=== PATIENT | female | born 1955 | race Two or more races ===

== ENCOUNTER 2024-01-12 05:11 | Inpatient (IN) | payer MEDICARE, MEDICAID ==
[2024-01-12] VITALS (20 sets, daily range): BP systolic 102–163; BP diastolic 51–90; PULSE 82–155; RESP 19–26; TEMP 97.7; O2SAT 68–100
[~2024-01-12] VITALS: Ht 162.6 cm; Wt 82.7 kg
[2024-01-12] MEDS: ADENOSINE 6 MG/2 ML INJ IV ONE ×2 (06:00→06:57)
[2024-01-12] MEDS: DexAMETHasone SOD PHOS 10MG/1ML VIAL INJ IV ONE (06:00)
[2024-01-12] MEDS: LEVALBUTEROL HCL 1.25 MG/3 ML NEB ONE (06:00)
[2024-01-12 06:20] LABS: Basophils # (auto) 0.1 10 ^3/uL (0-0.2); Eosinophils # (auto) 0 10 ^3/uL (0-0.8); Eosinophils % (auto) 0.1 % (0.0-7.0); Hemoglobin 13.8 g/dL (12.2-16.2); Mean Corpuscular Hemoglobin 34.8 pg (28.0-32.0); Monocytes # (auto) 0.6 10 ^3/uL (0-1.3); Red Blood Cells 3.96 10^6/uL (4.0-5.20)
[2024-01-12 06:22] LABS: Basophils % (auto) 0.4 % (0.0-2.0); Hematocrit 39.8 % (36.0-46.0); Lymphocytes # (auto) 1.8 10 ^3/uL (0.4-5.4); Lymphocytes % (auto) 8.8 % (10.0-50.0); Mean Corpuscular Hgb Conc. 34.6 g/dL (32.0-36.0); Mean Corpuscular Volume 100.5 fL (80.0-100.0); Monocytes % (auto) 3.2 % (0.0-12.0); Neutrophils # (auto) 17.5 10 ^3/uL (1.6-8.6); Neutrophils % (auto) 87.5 % (37.0-80.0); Nucleated Red Blood Cells % 0.3 %
[2024-01-12 06:35] LABS: Base Excess 9.3 mmol/L (-2.0-2.0)
[2024-01-12 06:35] LABS: Red Cell Distribution Width 21.4 % (11.8-14.3)
[2024-01-12] MEDS: LEVALBUTEROL HCL 1.25 MG/3 ML NEB NEB SCH ×2 (06:36→18:48)
[2024-01-12 06:39] LABS: INR 1.19 (0.9-1.15); Partial Thromboplastin Time 21.8 SEC (24.5-34.5); Prothrombin Time 12.4 sec (9.3-11.8)
[2024-01-12] MEDS: SODIUM CHLORIDE 0.9% 1,000 ML IV ONE (06:49)
[2024-01-12] MEDS: NOREPINEPHRINE 8 MG/250ML KIT 250 ML IV SCH ×2 (07:00→21:25)
[2024-01-12] MEDS: NOREPINEPHRINE 8 MG/250ML KIT 250 ML IV ONE ×2 (07:02→21:27)
[2024-01-12] MEDS: IOHEXOL 350 MG/ML 100ML IJ ONE (07:08)
[2024-01-12] MEDS: AZITHROMYCIN 500MG/ 250ML 250 ML IV ONE (07:30)
[2024-01-12 07:49] LABS: Rapid Influenza A Negative (Negative); Rapid Influenza B Negative (Negative)
[2024-01-12 07:50] LABS: COVID19 ANTIGEN SOFIA FIA NEGATIVE (NEGATIVE)
[2024-01-12 08:15] LABS: Lactic Acid w/Reflex 6.7 mmol/L (0.4-2.0)
[2024-01-12] MEDS: ONDANSETRON HCL 4 MG/2 ML VIAL IV ONE (08:21)
[2024-01-12 08:27] LABS: Alanine Aminotransferase 126 U/L (7-40); Albumin 3.3 g/dL (3.2-4.8); Alkaline Phosphatase 81 U/L (46-116); Anion Gap 11 (5-15); Aspartate Aminotransferase 220 U/L (13-40); BUN/Creatinine Ratio 10.4 (10.0-20.0); Blood Urea Nitrogen 15 mg/dL (9-23); Calcium 7.1 mg/dL (8.5-10.1); Carbon Dioxide 33 mmol/L (20-30); Chloride 98 mmol/L (98-107); Glucose 227 mg/dL (74-106); Sodium 142 mmol/L (136-145)
[2024-01-12 08:28] LABS: Total Protein 5.7 g/dL (5.7-8.2)
[2024-01-12] MEDS: VANCOMYCIN 1GM/200ML 200 ML IV ONE (08:29)
[2024-01-12 08:36] LABS: Potassium 1.1 mmol/L (3.5-5.1)
[2024-01-12] MEDS: POTASSIUM CHL 20 Meq TABLET PO ONE (08:44)
[2024-01-12 08:50] LABS: Magnesium 1.3 mg/dL (1.6-2.6)
[2024-01-12] MEDS: POTASSIUM CHL 20MEQ/100ML 100 ML IV SCH ×2 (08:58→15:15)
[2024-01-12] MEDS ORDERED: MORPHINE SULFATE INJ 2 MG/ml SYRG IV PRN (10:00)
[2024-01-12] MEDS ORDERED: NITROGLYCERIN 0.4 MG SL TAB SL PRN (10:00)
[2024-01-12] MEDS ORDERED: DEXTROSE (50%) 50ML SYRG IV PRN (10:00)
[2024-01-12] MEDS: LACTATED RINGER'S 1,000 ML IV ONE (10:37)
[2024-01-12] MEDS: PANTOPRAZOLE 40 MG/10 ML VIAL INJ IV SCH (10:37)
[2024-01-12] MEDS: MAGNESIUM SULFATE 1GM/100ML 100 ML IV SCH (11:19)
[2024-01-12] MEDS: InsuLIN REG 1unit/0.01ml Soln (100units/ml) SC SCH (11:50)
[2024-01-12] MEDS: ACCU-CHEK COMFORT CURVE STRIP VI SCH (11:50)
[2024-01-12] MEDS: ENOXAPARIN SOD 40 MG/0.4 ML SYRINGE SC SCH (11:57)
[2024-01-12] MEDS: ASPirin 81 mg TAB PO ONE (11:57)
[2024-01-12] MEDS: SOD CHL 0.9%/ KCL 40MEQ 1,000 ML IV SCH (12:36)
[2024-01-12] MEDS: dilTIAZem HCL 60 MG TAB PO SCH (12:40)
[2024-01-12] MEDS: dilTIAZem 25 MG/5 ML VIAL IV ONE (12:40)
[2024-01-12 14:33] LABS: Anion Gap 9 (5-15); Carbon Dioxide 35 mmol/L (20-30); Chloride 99 mmol/L (98-107); Sodium 143 mmol/L (136-145)
[2024-01-12 14:34] LABS: Calcium 6.4 mg/dL (8.7-10.4)
[2024-01-12] MEDS: metroNIDAZOLE 500MG/100ML 100 ML IV SCH (14:35)
[2024-01-12 14:39] LABS: BUN/Creatinine Ratio 12.7 (10.0-20.0); Blood Urea Nitrogen 17 mg/dL (9-23); Glucose 214 mg/dL (74-106); Magnesium 2.4 mg/dL (1.6-2.6)
[2024-01-12 15:10] LABS: Potassium 1.6 mmol/L (3.5-5.1)
[2024-01-12] MEDS: LIDOCAINE 1% (LOCAL ANESTH.) PF 5ml SDV ID ONE (15:15)
[2024-01-12] MEDS: LORazepam 2MG/ML-1ML VIAL IV ONE (15:30)
[2024-01-12 16:43] LABS: Base Excess 5.8 mmol/L (-2.0-2.0)
[2024-01-12 17:47] LABS: Urine Bacteria MANY /hpf (None Seen); Urine Blood 3+ /uL (Negative); Urine Clarity HAZY (Clear); Urine Color Yellow (Yellow); Urine Protein, UAD 1+ (Negative); Urine Urobilinogen Normal (Negative); Urine WBC 3 /hpf (0 - 5)
[2024-01-12] MEDS: IPRATROPIUM BROM 0.5 MG/2.5ML INH SOL NEB SCH (18:48)
[2024-01-12] MEDS: MIDAZOLAM DRIP 50 mg/50mL 50 ML IV SCH (20:20)
[2024-01-12] MEDS: MIDAZOLAM DRIP 50 mg/50mL 50 ML IV ONE (20:28)
[2024-01-12 21:26] LABS: Basophils # (auto) 0 10 ^3/uL (0-0.2); Basophils % (auto) 0.1 % (0.0-2.0); Eosinophils # (auto) 0 10 ^3/uL (0-0.8); Hemoglobin 12.3 g/dL (12.2-16.2); Monocytes # (auto) 0.7 10 ^3/uL (0-1.3)
[2024-01-12 21:28] LABS: Eosinophils % (auto) 0.1 % (0.0-7.0); Hematocrit 36.8 % (36.0-46.0); Lymphocytes # (auto) 1.4 10 ^3/uL (0.4-5.4); Lymphocytes % (auto) 6.1 % (10.0-50.0); Mean Corpuscular Hemoglobin 34.5 pg (28.0-32.0); Mean Corpuscular Hgb Conc. 33.4 g/dL (32.0-36.0); Mean Corpuscular Volume 103.4 fL (80.0-100.0); Monocytes % (auto) 3.3 % (0.0-12.0); Neutrophils # (auto) 20.2 10 ^3/uL (1.6-8.6); Neutrophils % (auto) 90.4 % (37.0-80.0); Nucleated Red Blood Cells % 0.2 %; Red Blood Cells 3.56 10^6/uL (4.0-5.20); White Blood Cell 22.3 10^3/uL (4.4-10.8)
[2024-01-12 21:28] LABS: Base Excess 4.9 mmol/L (-2.0-2.0)
[2024-01-12 21:29] LABS: Red Cell Distribution Width 22.2 % (11.8-14.3)
[2024-01-12 21:40] LABS: Alanine Aminotransferase 160 U/L (7-40); Alkaline Phosphatase 69 U/L (46-116); Anion Gap 10 (5-15); Aspartate Aminotransferase 343 U/L (13-40); BUN/Creatinine Ratio 7.1 (10.0-20.0); Blood Urea Nitrogen 11 mg/dL (9-23); Calcium 6.4 mg/dL (8.5-10.1); Carbon Dioxide 32 mmol/L (20-30); Chloride 104 mmol/L (98-107); Glucose 204 mg/dL (74-106); Sodium 146 mmol/L (136-145)
[2024-01-12 21:41] LABS: Albumin 2.9 g/dL (3.2-4.8); Bilirubin, Total 0.9 mg/dL (0.2-1.0); Total Protein 5.1 g/dL (5.7-8.2)
[2024-01-12 21:50] LABS: Potassium 1.2 mmol/L (3.5-5.1)
[2024-01-12] MEDS: fentaNYL Drip 2500mCg/250mlNS 250 ML IV SCH (23:15)
[2024-01-12] MEDS: POTASSIUM EFFERVESENT TAB 25 MEQ PO ONE (23:31)
[2024-01-13] VITALS (12 sets, daily range): BP systolic 94–140; BP diastolic 51–77; PULSE 86–96; RESP 22–24; O2SAT 89–95
[2024-01-13] MEDS: SODIUM CHLOR 0.9% PF (SALINE LOCK) 10ML VIAL/SYR IV SCH (00:43)
[2024-01-13] MEDS: ENOXAPARIN SOD 100 MG/1 ML SYRINGE SC SCH ×2 (00:56→10:00)
[2024-01-13 07:08] LABS: Alanine Aminotransferase 127 U/L (7-40); Alkaline Phosphatase 62 U/L (46-116); Chloride 108 mmol/L (98-107)
[2024-01-13 07:09] LABS: Albumin 2.7 g/dL (3.2-4.8); Anion Gap 8 (5-15); Aspartate Aminotransferase 331 U/L (13-40); BUN/Creatinine Ratio 11.8 (10.0-20.0); Blood Urea Nitrogen 15 mg/dL (9-23); Carbon Dioxide 32 mmol/L (20-30); Glucose 151 mg/dL (74-106); Magnesium 1.9 mg/dL (1.6-2.6); Sodium 148 mmol/L (136-145); Total Protein 4.9 g/dL (5.7-8.2)
[2024-01-13 07:23] LABS: Calcium 5.7 mg/dL (8.7-10.4)
[2024-01-13] MEDS ORDERED: POTASSIUM CHL 20MEQ/100ML 100 ML IV SCH (07:30)
[2024-01-13 07:35] LABS: Basophils # (auto) 0 10 ^3/uL (0-0.2); Basophils % (auto) 0.5 % (0.0-2.0); Eosinophils # (auto) 0 10 ^3/uL (0-0.8); Eosinophils % (auto) 0.1 % (0.0-7.0); Hematocrit 35.5 % (36.0-46.0); Lymphocytes # (auto) 2.8 10 ^3/uL (0.4-5.4); Lymphocytes % (auto) 30.2 % (10.0-50.0); Mean Corpuscular Hemoglobin 34.1 pg (28.0-32.0); Mean Corpuscular Hgb Conc. 33.8 g/dL (32.0-36.0); Mean Corpuscular Volume 100.8 fL (80.0-100.0); Monocytes # (auto) 0.2 10 ^3/uL (0-1.3); Monocytes % (auto) 2.5 % (0.0-12.0); Neutrophils # (auto) 6.1 10 ^3/uL (1.6-8.6); Neutrophils % (auto) 66.7 % (37.0-80.0); Nucleated Red Blood Cells % 0.7 %; Red Blood Cells 3.52 10^6/uL (4.0-5.20); White Blood Cell 9.2 10^3/uL (4.4-10.8)
[2024-01-13 07:50] LABS: Base Excess 6.7 mmol/L (-2.0-2.0)
[2024-01-13 07:56] LABS: Red Cell Distribution Width 21.5 % (11.8-14.3)
[2024-01-13] MEDS: POTASSIUM CHL 20MEQ/100ML 100 ML IV ONE (08:00)
[2024-01-13] MEDS: CALCIUM GLUC 1,000mg/50ml-NS 50 ML IV SCH ×2 (08:00→10:15)
[2024-01-13 08:03] LABS: Macrocytosis Slight; Platelet Estimate Markedly Decreased
[2024-01-13 08:04] LABS: Anisocytosis Slight
[2024-01-13] MEDS: cefTRIAXone 1GM/50ML D5W 50 ML IV SCH (09:00)
[2024-01-13 09:36] LABS: Eosinophils # (auto) 0 10 ^3/uL (0-0.8); Lymphocytes # (auto) 2.3 10 ^3/uL (0.4-5.4)
[2024-01-13 09:38] LABS: Basophils # (auto) 0.1 10 ^3/uL (0-0.2); Basophils % (auto) 0.6 % (0.0-2.0); Hemoglobin 10.5 g/dL (12.2-16.2); Mean Corpuscular Hemoglobin 34.2 pg (28.0-32.0); Mean Corpuscular Hgb Conc. 33.7 g/dL (32.0-36.0); Mean Corpuscular Volume 101.5 fL (80.0-100.0); Monocytes # (auto) 0.8 10 ^3/uL (0-1.3); Monocytes % (auto) 3.5 % (0.0-12.0); Neutrophils # (auto) 20.1 10 ^3/uL (1.6-8.6); Neutrophils % (auto) 85.9 % (37.0-80.0); Nucleated Red Blood Cells % 0.2 %; Red Blood Cells 3.06 10^6/uL (4.0-5.20); White Blood Cell 23.4 10^3/uL (4.4-10.8)
[2024-01-13 09:39] LABS: Red Cell Distribution Width 21.3 % (11.8-14.3)
[2024-01-13 09:50] LABS: INR 1.23 (0.9-1.15); Partial Thromboplastin Time 27.1 SEC (24.5-34.5); Prothrombin Time 12.7 sec (9.3-11.8)
[2024-01-13] MEDS: POTASSIUM CHL 20MEQ/100ML 100 ML IV SCH ×2 (10:00→20:13)
[2024-01-13] MEDS: ASPirin 81 mg TAB PO SCH (10:00)
[2024-01-13] MEDS ORDERED: ASPirin 81 mg TAB PO SCH (10:00)
[2024-01-13] MEDS: D5W/ SOD CHL 0.9%/KCL 20MEQ 1,000 ML IV SCH (10:30)
[2024-01-13 10:49] LABS: Alanine Aminotransferase 103 U/L (7-40); Albumin 2.4 g/dL (3.2-4.8); Alkaline Phosphatase 54 U/L (46-116); Aspartate Aminotransferase 247 U/L (13-40); BUN/Creatinine Ratio 9.5 (10.0-20.0); Bilirubin, Total 0.8 mg/dL (0.2-1.0); Blood Urea Nitrogen 10 mg/dL (9-23); Carbon Dioxide 31 mmol/L (20-30); Chloride 117 mmol/L (98-107); Glucose 146 mg/dL (74-106); Magnesium 1.7 mg/dL (1.6-2.6); Phosphorus 1.8 mg/dL (2.4-5.1); Sodium 144 mmol/L (136-145); Total Protein 4.3 g/dL (5.7-8.2)
[2024-01-13 11:27] LABS: Anion Gap -4 (5-15)
[2024-01-13 11:29] LABS: Calcium 5.1 mg/dL (8.7-10.4)
[2024-01-13 11:30] LABS: Potassium > 10.0 mmol/L (3.5-5.1)
[2024-01-13 11:58] LABS: Calcium 6.7 mg/dL (8.5-10.1)
[2024-01-13 12:13] LABS: Potassium 1.8 mmol/L (3.5-5.1)
[2024-01-13] MEDS ORDERED: VANCOMYCIN PER PHARMACY 0 MG IV SCH (16:00)
[2024-01-13] MEDS: SPIRONOLACTONE 25 MG TAB GT ONE (16:15)
[2024-01-13] MEDS: VASOPRESSIN 20 UNITS in SODIUM CHL 0.9% 99 ML IV SCH (16:30)
[2024-01-13] MEDS: VANCOMYCIN 1GM/200ML 200 ML IV ONE (17:10)
[2024-01-13] MEDS: MAGNESIUM SULFATE 1GM/100ML 100 ML IV SCH (20:00)
[2024-01-13] MEDS: HYDROCORTISONE SOD SUCC 100 MG/2ML INJ VIAL IV SCH (23:04)
[2024-01-13] MEDS: CEFEPIME 2GM/50ML NS 50 ML IV SCH (23:10)
[2024-01-14] VITALS (78 sets, daily range): BP systolic 86–125; BP diastolic 50–79; PULSE 37–111; RESP 13–22; TEMP 99–100.4; O2SAT 91–98
[2024-01-14 05:40] LABS: Basophils # (auto) 0 10 ^3/uL (0-0.2); Eosinophils # (auto) 0 10 ^3/uL (0-0.8); Hemoglobin 10.3 g/dL (12.2-16.2); Monocytes # (auto) 0.5 10 ^3/uL (0-1.3); Monocytes % (auto) 2.2 % (0.0-12.0); Nucleated Red Blood Cells % 0.1 %
[2024-01-14 05:41] LABS: Hematocrit 30.8 % (36.0-46.0); Lymphocytes # (auto) 1.6 10 ^3/uL (0.4-5.4); Mean Corpuscular Hemoglobin 34.4 pg (28.0-32.0); Mean Corpuscular Hgb Conc. 33.6 g/dL (32.0-36.0); Mean Corpuscular Volume 102.5 fL (80.0-100.0); Neutrophils # (auto) 20.7 10 ^3/uL (1.6-8.6); Neutrophils % (auto) 90.8 % (37.0-80.0); Red Cell Distribution Width 22.4 % (11.8-14.3); White Blood Cell 22.9 10^3/uL (4.4-10.8)
[2024-01-14 05:50] LABS: Alanine Aminotransferase 87 U/L (7-40); Albumin 2.6 g/dL (3.2-4.8); Alkaline Phosphatase 61 U/L (46-116); Anion Gap 7 (5-15); Aspartate Aminotransferase 92 U/L (13-40); BUN/Creatinine Ratio 10.9 (10.0-20.0); Bilirubin, Total 0.7 mg/dL (0.2-1.0); Blood Urea Nitrogen 11 mg/dL (9-23); Carbon Dioxide 32 mmol/L (20-30); Chloride 115 mmol/L (98-107); Glucose 164 mg/dL (74-106); Magnesium 2.3 mg/dL (1.6-2.6); Total Protein 4.8 g/dL (5.7-8.2)
[2024-01-14 06:20] LABS: Sodium 154 mmol/L (136-145)
[2024-01-14 06:21] LABS: Calcium 5.9 mg/dL (8.7-10.4)
[2024-01-14 06:22] LABS: Potassium 2.3 mmol/L (3.5-5.1)
[2024-01-14] MEDS: POTASSIUM CHLORIDE 80 MEQ, LIDOCAINE 1% (LOCAL ANESTH.) 6 ML in SODIUM CHL 0.9% 500 ML IV ONE (06:30)
[2024-01-14 07:39] LABS: Base Excess 6.1 mmol/L (-2.0-2.0)
[2024-01-14] MEDS: CALCIUM GLUC 1,000mg/50ml-NS 50 ML IV ONE ×2 (08:15→11:17)
[2024-01-14] MEDS ORDERED: POTASSIUM CHL 20MEQ/100ML 100 ML IV SCH (08:15)
[2024-01-14] MEDS: SPIRONOLACTONE 25 MG TAB GT SCH (09:55)
[2024-01-14] MEDS: ACETAMINOPHEN 500 MG TAB PO PRN (09:56)
[2024-01-14] MEDS: CALCIUM GLUC 1,000mg/50ml-NS 50 ML IV SCH (09:56)
[2024-01-14] MEDS ORDERED: POTASSIUM CHLORIDE 40 MEQ in D5W 5% 1,000 ML IV SCH (11:00)
[2024-01-14] MEDS ORDERED: Jevity 1.2 Cal/Fiber 1 Liter GT SCH (11:00)
[2024-01-14] MEDS: FREE WATER GT SCH (11:29)
[2024-01-14] MEDS: VANCOMYCIN 1GM/200ML 200 ML IV SCH (12:02)
[2024-01-14] MEDS: D5W/SOD CHL 0.9%/KCL 40MEQ 1,000 ML IV SCH (12:53)
[2024-01-14] MEDS: ACETYLCYSTEINE 10 %(100MG/ML) SOL 4ML NEB SCH (14:35)
[2024-01-14 16:17] LABS: Base Excess 2.8 mmol/L (-2.0-2.0)
[2024-01-14] MEDS ORDERED: Jevity 1.2 Cal/Fiber 1 Liter NG SCH (16:45)
[2024-01-14] MEDS: PROPOFOL 100 ML IV SCH (17:00)
[2024-01-14] MEDS: POTASSIUM EFFERVESENT TAB 25 MEQ GT ONE (18:01)
[2024-01-15] VITALS (116 sets, daily range): BP systolic 82–142; BP diastolic 47–75; PULSE 83–108; RESP 18–22; TEMP 98.1–100.1; O2SAT 91–99
[2024-01-15 04:05] LABS: Basophils # (auto) 0 10 ^3/uL (0-0.2); Eosinophils # (auto) 0 10 ^3/uL (0-0.8); Hemoglobin 10.6 g/dL (12.2-16.2); Monocytes # (auto) 0.7 10 ^3/uL (0-1.3); White Blood Cell 23.7 10^3/uL (4.4-10.8)
[2024-01-15 04:09] LABS: Basophils % (auto) 0.2 % (0.0-2.0); Hematocrit 32.2 % (36.0-46.0); Lymphocytes # (auto) 2.2 10 ^3/uL (0.4-5.4); Lymphocytes % (auto) 9.2 % (10.0-50.0); Mean Corpuscular Hemoglobin 34.9 pg (28.0-32.0); Mean Corpuscular Volume 105.7 fL (80.0-100.0); Neutrophils # (auto) 20.7 10 ^3/uL (1.6-8.6); Neutrophils % (auto) 87.6 % (37.0-80.0); Nucleated Red Blood Cells % 0.3 %; Red Blood Cells 3.05 10^6/uL (4.0-5.20); Red Cell Distribution Width 23.4 % (11.8-14.3)
[2024-01-15 04:25] LABS: Alanine Aminotransferase 77 U/L (7-40); Albumin 2.9 g/dL (3.2-4.8); Alkaline Phosphatase 65 U/L (46-116); Anion Gap 6 (5-15); Aspartate Aminotransferase 59 U/L (13-40); BUN/Creatinine Ratio 10.3 (10.0-20.0); Bilirubin, Total 0.6 mg/dL (0.2-1.0); Blood Urea Nitrogen 14 mg/dL (9-23); Calcium 6.3 mg/dL (8.7-10.4); Carbon Dioxide 29 mmol/L (20-30); Chloride 118 mmol/L (98-107); Glucose 181 mg/dL (74-106); Potassium 4.3 mmol/L (3.5-5.1); Sodium 153 mmol/L (136-145); Total Protein 5.3 g/dL (5.7-8.2)
[2024-01-15] MEDS: D5W/SOD CHL 0.45%/KCL 20MEQ 1,000 ML IV SCH (07:27)
[2024-01-15] MEDS: CALCIUM GLUC 1,000mg/50ml-NS 50 ML IV ONE (07:27)
[2024-01-15 07:31] LABS: Base Excess -1.4 mmol/L (-2.0-2.0)
[2024-01-15] MEDS: POTASSIUM EFFERVESENT TAB 25 MEQ GT SCH (08:22)
[2024-01-15] MEDS: FUROSEMIDE 40 MG/4 ML VIAL IV ONE (10:24)
[2024-01-15] MEDS: D5W 5% 1,000 ML IV SCH (10:24)
[2024-01-15] MEDS: D5W/SOD CHLO 0.9% 1,000 ML IV SCH (14:15)
[2024-01-15] MEDS ORDERED: DEXTROSE (50%) 50ML SYRG IV PRN (20:45)
[2024-01-16] VITALS (112 sets, daily range): BP systolic 92–157; BP diastolic 44–83; PULSE 78–108; RESP 14–22; TEMP 98–99.4; O2SAT 93–100
[2024-01-16] MEDS: ACCU-CHEK COMFORT CURVE STRIP VI SCH (00:44)
[2024-01-16] MEDS: InsuLIN REG 1unit/0.01ml Soln (100units/ml) SC SCH (01:46)
[2024-01-16 03:59] LABS: Basophils # (auto) 0 10 ^3/uL (0-0.2); Basophils % (auto) 0.1 % (0.0-2.0); Eosinophils # (auto) 0 10 ^3/uL (0-0.8); Hematocrit 32.7 % (36.0-46.0); Hemoglobin 10.4 g/dL (12.2-16.2); Lymphocytes # (auto) 2.2 10 ^3/uL (0.4-5.4); Lymphocytes % (auto) 10.1 % (10.0-50.0); Mean Corpuscular Hemoglobin 34.3 pg (28.0-32.0); Mean Corpuscular Hgb Conc. 31.8 g/dL (32.0-36.0); Mean Corpuscular Volume 107.9 fL (80.0-100.0); Monocytes # (auto) 0.8 10 ^3/uL (0-1.3); Monocytes % (auto) 3.7 % (0.0-12.0); Neutrophils # (auto) 18.4 10 ^3/uL (1.6-8.6); Neutrophils % (auto) 86.1 % (37.0-80.0); Nucleated Red Blood Cells % 0.3 %; Red Blood Cells 3.03 10^6/uL (4.0-5.20); Red Cell Distribution Width 24.6 % (11.8-14.3); White Blood Cell 21.4 10^3/uL (4.4-10.8)
[2024-01-16 04:05] LABS: Anion Gap 6 (5-15); Carbon Dioxide 27 mmol/L (20-30); Chloride 116 mmol/L (98-107); Potassium 4.8 mmol/L (3.5-5.1); Sodium 149 mmol/L (136-145)
[2024-01-16 04:06] LABS: Calcium 6.3 mg/dL (8.7-10.4)
[2024-01-16 04:11] LABS: BUN/Creatinine Ratio 13.5 (10.0-20.0); Blood Urea Nitrogen 21 mg/dL (9-23); Glucose 182 mg/dL (74-106)
[2024-01-16] MEDS: FUROSEMIDE 40 MG/4 ML VIAL IV SCH (06:26)
[2024-01-16 07:16] LABS: Base Excess 0.2 mmol/L (-2.0-2.0)
[2024-01-16] MEDS: SODIUM CHLORIDE 0.9% 500 ML IV ONE (09:30)
[2024-01-16] MEDS: D5W/SOD CHLO 0.9% 1,000 ML IV SCH (10:46)
[2024-01-16] MEDS: LINEZOLID 600MG/300ML 300 ML IV SCH (10:48)
[2024-01-17] VITALS (107 sets, daily range): BP systolic 89–153; BP diastolic 44–74; PULSE 73–96; RESP 13–23; TEMP 98.2–100; O2SAT 90–99
[2024-01-17 04:25] LABS: Alanine Aminotransferase 50 U/L (7-40); Alkaline Phosphatase 63 U/L (46-116); Anion Gap 5 (5-15); BUN/Creatinine Ratio 17.6 (10.0-20.0); Blood Urea Nitrogen 22 mg/dL (9-23); Calcium 6.2 mg/dL (8.7-10.4); Carbon Dioxide 27 mmol/L (20-30); Chloride 116 mmol/L (98-107); Glucose 147 mg/dL (74-106); Potassium 4.6 mmol/L (3.5-5.1); Sodium 148 mmol/L (136-145)
[2024-01-17 04:26] LABS: Albumin 2.8 g/dL (3.2-4.8); Aspartate Aminotransferase 39 U/L (13-40); Bilirubin, Total 0.4 mg/dL (0.2-1.0); Total Protein 5.2 g/dL (5.7-8.2)
[2024-01-17 04:36] LABS: Hemoglobin 10.3 g/dL (12.2-16.2)
[2024-01-17 04:40] LABS: Hematocrit 31.2 % (36.0-46.0); Mean Corpuscular Hemoglobin 35.5 pg (28.0-32.0); Mean Corpuscular Hgb Conc. 32.9 g/dL (32.0-36.0); Mean Corpuscular Volume 107.8 fL (80.0-100.0)
[2024-01-17 05:18] LABS: Red Cell Distribution Width 23.9 % (11.8-14.3)
[2024-01-17 05:20] LABS: Basophils % (manual) 0 (0.0-2.0); Blast Cells 0; Eosinophils % (manual) 0 (0-7); Myelocytes % 0; Reactive Lymphocytes 0
[2024-01-17 07:46] LABS: Base Excess 0.2 mmol/L (-2.0-2.0)
[2024-01-17 07:47] LABS: Platelet Estimate Adequate
[2024-01-17 07:52] LABS: Band Neutrophils % (manual) 2; Lymphocytes % (manual) 14 (10.0-50.0); Metamyelocytes % 2; Monocytes % (manual) 7 (0-12); Promyelocytes % 3
[2024-01-17 07:53] LABS: Macrocytosis Moderate
[2024-01-17] MEDS: D5W/SOD CHLO 0.9% 1,000 ML IV SCH (09:36)
[2024-01-17] MEDS: D5W/SOD CHL 0.45% 1,000 ML IV SCH (18:15)
[2024-01-18] VITALS (85 sets, daily range): BP systolic 118–175; BP diastolic 57–119; PULSE 85–144; RESP 11–33; TEMP 98.4–99.8; O2SAT 90–98
[2024-01-18 04:59] LABS: Hematocrit 31.4 % (36.0-46.0); Hemoglobin 10.5 g/dL (12.2-16.2); Mean Corpuscular Hemoglobin 35.9 pg (28.0-32.0); Mean Corpuscular Hgb Conc. 33.5 g/dL (32.0-36.0); Mean Corpuscular Volume 107.2 fL (80.0-100.0); Red Blood Cells 2.93 10^6/uL (4.0-5.20); White Blood Cell 10.5 10^3/uL (4.4-10.8)
[2024-01-18 05:03] LABS: Alanine Aminotransferase 39 U/L (7-40); Albumin 2.9 g/dL (3.2-4.8); Alkaline Phosphatase 61 U/L (46-116); Anion Gap 7 (5-15); Aspartate Aminotransferase 43 U/L (13-40); BUN/Creatinine Ratio 21.4 (10.0-20.0); Bilirubin, Total 0.5 mg/dL (0.2-1.0); Blood Urea Nitrogen 24 mg/dL (9-23); Calcium 6.7 mg/dL (8.5-10.1); Carbon Dioxide 27 mmol/L (20-30); Chloride 115 mmol/L (98-107); Glucose 134 mg/dL (74-106); Potassium 4.7 mmol/L (3.5-5.1); Sodium 149 mmol/L (136-145); Total Protein 5.2 g/dL (5.7-8.2)
[2024-01-18 05:04] LABS: Red Cell Distribution Width 23.7 % (11.8-14.3)
[2024-01-18 05:06] LABS: Basophils % (manual) 0 (0.0-2.0); Blast Cells 0; Eosinophils % (manual) 0 (0-7); Promyelocytes % 0; Reactive Lymphocytes 0
[2024-01-18 06:10] LABS: INR 1.18 (0.9-1.15); Partial Thromboplastin Time 28.7 SEC (24.5-34.5); Prothrombin Time 12.3 sec (9.3-11.8)
[2024-01-18 06:48] LABS: Band Neutrophils % (manual) 3; Lymphocytes % (manual) 20 (10.0-50.0); Metamyelocytes % 1; Monocytes % (manual) 4 (0-12); Myelocytes % 2
[2024-01-18 06:49] LABS: Anisocytosis Slight; Macrocytosis Moderate; Platelet Estimate Adequate
[2024-01-18 06:50] LABS: Hypersegmented Neutrophils Present
[2024-01-18 07:07] LABS: Base Excess 2.5 mmol/L (-2.0-2.0)
[2024-01-18] MEDS: ENOXAPARIN SOD 40 MG/0.4 ML SYRINGE SC SCH (10:00)
[2024-01-18] MEDS: LACTULOSE 20Gm/30ML SOLN PO SCH (10:00)
[2024-01-18] MEDS: METOPROLOL TARTRATE 25 MG TAB PO SCH (10:00)
[2024-01-18] MEDS: LABETALOL HCL 5 MG/ML 4ML SYRINGE IV PRN (10:38)
[2024-01-18] MEDS: hydrALAZINE HCL 20 MG/ML VL IV PRN (11:37)
[2024-01-18] MEDS: D5W 5% 1,000 ML IV SCH (11:39)
[2024-01-18 12:48] LABS: Base Excess 2.7 mmol/L (-2.0-2.0)
[2024-01-18] MEDS: METOCLOPRAMIDE 10 mg/10ml ORAL soln GT SCH (14:00)
[2024-01-18] MEDS: LORazepam 2MG/ML-1ML VIAL IV ONE (14:36)
[2024-01-18] MEDS: FUROSEMIDE 40 MG/4 ML VIAL ONE (15:05)
[2024-01-18] MEDS: FUROSEMIDE 40 MG/4 ML VIAL IV ONE ×2 (15:15→15:30)
[2024-01-18 17:16] LABS: Base Excess 4.6 mmol/L (-2.0-2.0)
[2024-01-18] MEDS: FUROSEMIDE 40 MG/4 ML VIAL IV SCH (17:59)
[2024-01-18] MEDS: LORazepam 2MG/ML-1ML VIAL IV PRN (18:39)
[2024-01-18] MEDS: ENOXAPARIN SOD 100 MG/1 ML SYRINGE SC SCH (21:37)
[2024-01-18] MEDS ORDERED: ENOXAPARIN SOD 100 MG/1 ML SYRINGE SC SCH (22:00)
[2024-01-19] VITALS (93 sets, daily range): BP systolic 99–203; BP diastolic 61–110; PULSE 87–130; RESP 13–36; TEMP 98.3–99.4; O2SAT 89–100
[2024-01-19 04:10] LABS: Hematocrit 35.9 % (36.0-46.0); Mean Corpuscular Hemoglobin 35.2 pg (28.0-32.0); Mean Corpuscular Hgb Conc. 33.4 g/dL (32.0-36.0); Mean Corpuscular Volume 105.5 fL (80.0-100.0); Red Blood Cells 3.41 10^6/uL (4.0-5.20); White Blood Cell 10.4 10^3/uL (4.4-10.8)
[2024-01-19 04:13] LABS: Red Cell Distribution Width 24.3 % (11.8-14.3)
[2024-01-19 04:15] LABS: Basophils % (manual) 0 (0.0-2.0); Blast Cells 0; Eosinophils % (manual) 0 (0-7); Promyelocytes % 0; Reactive Lymphocytes 0
[2024-01-19 04:18] LABS: Chloride 108 mmol/L (98-107); Potassium 2.8 mmol/L (3.5-5.1); Sodium 146 mmol/L (136-145)
[2024-01-19 04:19] LABS: Anion Gap 7 (5-15); Carbon Dioxide 31 mmol/L (20-30)
[2024-01-19 04:20] LABS: Calcium 7.2 mg/dL (8.7-10.4)
[2024-01-19 04:24] LABS: BUN/Creatinine Ratio 22.6 (10.0-20.0); Blood Urea Nitrogen 21 mg/dL (9-23); Glucose 108 mg/dL (74-106)
[2024-01-19 04:27] LABS: Phosphorus 1.5 mg/dL (2.4-5.1)
[2024-01-19] MEDS: POTASSIUM CHL 20MEQ/100ML 100 ML IV SCH ×2 (06:04→20:17)
[2024-01-19 06:14] LABS: Anisocytosis Moderate; Band Neutrophils % (manual) 2; Lymphocytes % (manual) 27 (10.0-50.0); Macrocytosis Moderate; Metamyelocytes % 2; Monocytes % (manual) 5 (0-12); Myelocytes % 1
[2024-01-19 06:15] LABS: Platelet Estimate Adequate; Stomatocytes Few
[2024-01-19 07:43] LABS: Base Excess 6.6 mmol/L (-2.0-2.0)
[2024-01-19] MEDS: cefTRIAXone 1GM/50ML D5W 50 ML IV SCH (08:38)
[2024-01-19] MEDS: POTASSIUM PHOSPHATE 44 MEQ in D5W 5% 250 ML IV ONE (10:25)
[2024-01-19] MEDS: MAGNESIUM SULFATE 1GM/100ML 100 ML IV SCH (10:26)
[2024-01-19] MEDS: FUROSEMIDE 40 MG/4 ML VIAL IV SCH (10:31)
[2024-01-19] MEDS: SACUBITRIL-VALSARTAN 24mg/26mg TAB PO SCH (10:32)
[2024-01-19] MEDS ORDERED: MAGNESIUM SULFATE 1GM/100ML 100 ML IV SCH (11:00)
[2024-01-19] MEDS ORDERED: LACTULOSE 20Gm/30ML SOLN PO PRN (14:45)
[2024-01-19 18:51] LABS: Alanine Aminotransferase 51 U/L (7-40); Albumin 3.1 g/dL (3.2-4.8); Alkaline Phosphatase 68 U/L (46-116); Anion Gap 8 (5-15); Aspartate Aminotransferase 64 U/L (13-40); BUN/Creatinine Ratio 19.8 (10.0-20.0); Blood Urea Nitrogen 16 mg/dL (9-23); Calcium 7.1 mg/dL (8.5-10.1); Carbon Dioxide 32 mmol/L (20-30); Chloride 103 mmol/L (98-107); Glucose 97 mg/dL (74-106); Potassium 2.6 mmol/L (3.5-5.1); Sodium 143 mmol/L (136-145)
[2024-01-19 18:52] LABS: Bilirubin, Total 0.8 mg/dL (0.2-1.0); Total Protein 5.4 g/dL (5.7-8.2)
[2024-01-20] VITALS (105 sets, daily range): BP systolic 93–179; BP diastolic 56–112; PULSE 79–104; RESP 12–30; TEMP 98.2–98.8; O2SAT 91–99
[2024-01-20 04:08] LABS: Alanine Aminotransferase 58 U/L (7-40); Alkaline Phosphatase 64 U/L (46-116); Anion Gap 7 (5-15); Calcium 6.8 mg/dL (8.7-10.4); Carbon Dioxide 30 mmol/L (20-30); Chloride 105 mmol/L (98-107); Glucose 104 mg/dL (74-106); Potassium 2.7 mmol/L (3.5-5.1); Sodium 142 mmol/L (136-145)
[2024-01-20 04:09] LABS: Albumin 2.9 g/dL (3.2-4.8); Aspartate Aminotransferase 55 U/L (13-40); BUN/Creatinine Ratio 19.7 (10.0-20.0); Blood Urea Nitrogen 13 mg/dL (9-23); Magnesium 1.5 mg/dL (1.6-2.6)
[2024-01-20 04:10] LABS: Bilirubin, Total 0.7 mg/dL (0.2-1.0); Phosphorus 1.9 mg/dL (2.4-5.1); Total Protein 5.2 g/dL (5.7-8.2)
[2024-01-20] MEDS: POTASSIUM CHL 20MEQ/100ML 100 ML IV SCH (07:48)
[2024-01-20] MEDS: POTASSIUM PHOSPHATE 22 MEQ in SODIUM CHL 0.9% 100 ML IV ONE (08:15)
[2024-01-20] MEDS: POTASSIUM CHLORIDE 40 MEQ, LIDOCAINE 1% (LOCAL ANESTH.) 4 ML in SODIUM CHL 0.9% 250 ML IV ONE ×2 (08:15→19:51)
[2024-01-20] MEDS: ONDANSETRON HCL 4 MG/2 ML VIAL IV PRN (08:51)
[2024-01-20] MEDS: MAGNESIUM SULFATE 1GM/100ML 100 ML IV ONE ×2 (09:35→12:08)
[2024-01-20] MEDS ORDERED: SPIRONOLACTONE 25 MG TAB PO SCH (10:00)
[2024-01-20] MEDS: SPIRONOLACTONE 25 MG TAB PO SCH (11:31)
[2024-01-20] MEDS: EMPAGLIFLOZIN 10 MG TAB PO SCH (11:31)
[2024-01-20] MEDS: NEUTRA-PHOS TABLET PO ONE (11:31)
[2024-01-20] MEDS: ENOXAPARIN SOD 100 MG/1 ML SYRINGE SC SCH (11:32)
[2024-01-20] MEDS: FUROSEMIDE 20 MG TAB PO SCH (11:32)
[2024-01-20 14:26] LABS: Potassium 2.9 mmol/L (3.5-5.1)
[2024-01-20] MEDS ORDERED: POTASSIUM CHLORIDE 80 MEQ, LIDOCAINE 1% (LOCAL ANESTH.) 6 ML in SODIUM CHL 0.9% 500 ML IV ONE (15:00)
[2024-01-20] MEDS: POTASSIUM CHL 20MEQ/100ML 100 ML IV ONE (17:02)
[2024-01-20] MEDS: ATORVASTATIN 20 MG TAB PO SCH (21:52)
[2024-01-21] VITALS (23 sets, daily range): BP systolic 103–147; BP diastolic 52–101; PULSE 82–105; RESP 18–25; TEMP 97.5–99; O2SAT 90–99
[2024-01-21] MEDS: POTASSIUM PHOSPHATE 22 MEQ in SODIUM CHL 0.9% 100 ML IV ONE (00:28)
[2024-01-21 08:40] LABS: Hemoglobin 11.8 g/dL (12.2-16.2)
[2024-01-21 08:41] LABS: Hematocrit 35.6 % (36.0-46.0); Mean Corpuscular Hemoglobin 34.6 pg (28.0-32.0); Mean Corpuscular Hgb Conc. 33.1 g/dL (32.0-36.0); Mean Corpuscular Volume 104.5 fL (80.0-100.0); White Blood Cell 12.6 10^3/uL (4.4-10.8)
[2024-01-21 08:43] LABS: Red Cell Distribution Width 23.2 % (11.8-14.3)
[2024-01-21 08:44] LABS: Basophils % (manual) 0 (0.0-2.0); Blast Cells 0; Metamyelocytes % 0; Myelocytes % 0; Promyelocytes % 0; Reactive Lymphocytes 0
[2024-01-21 08:57] LABS: Alanine Aminotransferase 51 U/L (7-40); Alkaline Phosphatase 63 U/L (46-116); Anion Gap 9 (5-15); Aspartate Aminotransferase 48 U/L (13-40); BUN/Creatinine Ratio 14.8 (10.0-20.0); Bilirubin, Total 0.6 mg/dL (0.2-1.0); Blood Urea Nitrogen 9 mg/dL (9-23); Calcium 7.2 mg/dL (8.5-10.1); Carbon Dioxide 30 mmol/L (20-30); Chloride 103 mmol/L (98-107); Glucose 80 mg/dL (74-106); Phosphorus 2.8 mg/dL (2.4-5.1); Sodium 142 mmol/L (136-145)
[2024-01-21 09:11] LABS: Band Neutrophils % (manual) 3; Eosinophils % (manual) 1 (0-7)
[2024-01-21 09:13] LABS: Anisocytosis Moderate; Lymphocytes % (manual) 18 (10.0-50.0); Macrocytosis Slight; Monocytes % (manual) 6 (0-12)
[2024-01-21 09:14] LABS: Platelet Estimate Adequate
[2024-01-21 09:32] LABS: Magnesium 1.5 mg/dL (1.6-2.6)
[2024-01-21] MEDS: POTASSIUM EFFERVESENT TAB 25 MEQ PO SCH ×2 (10:41→13:46)
[2024-01-21 10:52] LABS: Base Excess 4.4 mmol/L (-2.0-2.0)
[2024-01-21] MEDS: Ensure Enlive Strawberry 8oz Bottle PO SCH (12:00)
[2024-01-21] MEDS: MAGNESIUM SULFATE 1GM/100ML 100 ML IV SCH (13:48)
[2024-01-21 23:06] LABS: Renin Activity 4.4 ng/mL/hr (.)
[2024-01-22] VITALS (15 sets, daily range): BP systolic 122–135; BP diastolic 67–76; PULSE 63–109; RESP 18–20; TEMP 97.2–98.7; O2SAT 92–99
[2024-01-22 08:21] LABS: Basophils # (auto) 0.1 10 ^3/uL (0-0.2); Nucleated Red Blood Cells % 0.1 %
[2024-01-22 08:23] LABS: Basophils % (auto) 0.5 % (0.0-2.0); Eosinophils # (auto) 0.1 10 ^3/uL (0-0.8); Eosinophils % (auto) 0.9 % (0.0-7.0); Hematocrit 35.9 % (36.0-46.0); Lymphocytes # (auto) 2.4 10 ^3/uL (0.4-5.4); Lymphocytes % (auto) 17.8 % (10.0-50.0); Mean Corpuscular Hemoglobin 34.8 pg (28.0-32.0); Mean Corpuscular Hgb Conc. 33.3 g/dL (32.0-36.0); Mean Corpuscular Volume 104.4 fL (80.0-100.0); Monocytes # (auto) 0.6 10 ^3/uL (0-1.3); Monocytes % (auto) 4.4 % (0.0-12.0); Neutrophils # (auto) 10.3 10 ^3/uL (1.6-8.6); Neutrophils % (auto) 76.4 % (37.0-80.0); Red Blood Cells 3.44 10^6/uL (4.0-5.20); Red Cell Distribution Width 23.8 % (11.8-14.3); White Blood Cell 13.5 10^3/uL (4.4-10.8)
[2024-01-22 08:34] LABS: Chloride 103 mmol/L (98-107); Potassium 2.8 mmol/L (3.5-5.1); Sodium 142 mmol/L (136-145)
[2024-01-22 08:35] LABS: Anion Gap 8 (5-15); Carbon Dioxide 31 mmol/L (20-30)
[2024-01-22 08:36] LABS: Calcium 7.7 mg/dL (8.5-10.1)
[2024-01-22 08:40] LABS: Glucose 94 mg/dL (74-106)
[2024-01-22 08:41] LABS: BUN/Creatinine Ratio 11.5 (10.0-20.0); Blood Urea Nitrogen 7 mg/dL (9-23)
[2024-01-22] MEDS: POTASSIUM CHLORIDE 80 MEQ, LIDOCAINE 1% (LOCAL ANESTH.) 6 ML in SODIUM CHL 0.9% 500 ML IV ONE (09:20)
[2024-01-23] VITALS (13 sets, daily range): BP systolic 106–143; BP diastolic 63–80; PULSE 54–108; RESP 14–20; TEMP 97.4–98.4; O2SAT 92–100
[2024-01-23 06:20] LABS: Anion Gap 10 (5-15); Basophils # (auto) 0.1 10 ^3/uL (0-0.2); Carbon Dioxide 27 mmol/L (20-30); Chloride 103 mmol/L (98-107); Eosinophils # (auto) 0.2 10 ^3/uL (0-0.8); Mean Corpuscular Hgb Conc. 33.3 g/dL (32.0-36.0); Monocytes # (auto) 0.7 10 ^3/uL (0-1.3); Potassium 2.7 mmol/L (3.5-5.1); Red Blood Cells 3.28 10^6/uL (4.0-5.20); Sodium 140 mmol/L (136-145)
[2024-01-23 06:22] LABS: Calcium 7.3 mg/dL (8.7-10.4)
[2024-01-23 06:23] LABS: Basophils % (auto) 0.5 % (0.0-2.0); Eosinophils % (auto) 1.5 % (0.0-7.0); Hematocrit 34.6 % (36.0-46.0); Hemoglobin 11.5 g/dL (12.2-16.2); Lymphocytes # (auto) 2.6 10 ^3/uL (0.4-5.4); Lymphocytes % (auto) 17.5 % (10.0-50.0); Mean Corpuscular Hemoglobin 35.1 pg (28.0-32.0); Mean Corpuscular Volume 105.3 fL (80.0-100.0); Neutrophils % (auto) 75.5 % (37.0-80.0); White Blood Cell 14.6 10^3/uL (4.4-10.8)
[2024-01-23 06:26] LABS: BUN/Creatinine Ratio 10.5 (10.0-20.0); Blood Urea Nitrogen 6 mg/dL (9-23); Glucose 81 mg/dL (74-106)
[2024-01-23 06:27] LABS: Magnesium 1.3 mg/dL (1.6-2.6)
[2024-01-23 06:37] LABS: Red Cell Distribution Width 23.4 % (11.8-14.3)
[2024-01-23] MEDS: MAGNESIUM SULFATE 1GM/100ML 100 ML IV SCH (13:06)
[2024-01-23] MEDS: POTASSIUM CHLORIDE 80 MEQ, LIDOCAINE 1% (LOCAL ANESTH.) 6 ML in SODIUM CHL 0.9% 500 ML IV ONE (17:12)
[2024-01-23] MEDS ORDERED: SPIRONOLACTONE 25 MG TAB PO SCH (18:00)
[2024-01-23] MEDS: POTASSIUM EFFERVESENT TAB 25 MEQ PO SCH (22:00)
[2024-01-23] MEDS: MAGNESIUM OXIDE 400 MG TAB PO SCH (22:23)
[2024-01-23] MEDS: SPIRONOLACTONE 25 MG TAB PO SCH (22:56)
[2024-01-24] VITALS (18 sets, daily range): BP systolic 102–143; BP diastolic 57–77; PULSE 46–114; RESP 14–20; TEMP 97.9–98.6; O2SAT 91–99
[2024-01-24 05:59] LABS: Basophils # (auto) 0.1 10 ^3/uL (0-0.2); Basophils % (auto) 0.5 % (0.0-2.0); Eosinophils # (auto) 0.2 10 ^3/uL (0-0.8); Eosinophils % (auto) 1.3 % (0.0-7.0); Hematocrit 33.6 % (36.0-46.0); Hemoglobin 11.3 g/dL (12.2-16.2); Lymphocytes # (auto) 2.4 10 ^3/uL (0.4-5.4); Mean Corpuscular Hgb Conc. 33.5 g/dL (32.0-36.0); Mean Corpuscular Volume 104.4 fL (80.0-100.0); Monocytes # (auto) 0.6 10 ^3/uL (0-1.3); Monocytes % (auto) 4.8 % (0.0-12.0); Neutrophils # (auto) 10.2 10 ^3/uL (1.6-8.6); Neutrophils % (auto) 75.4 % (37.0-80.0); Nucleated Red Blood Cells % 0.2 %; Red Blood Cells 3.21 10^6/uL (4.0-5.20); Red Cell Distribution Width 23.5 % (11.8-14.3); White Blood Cell 13.6 10^3/uL (4.4-10.8)
[2024-01-24 06:01] LABS: Chloride 104 mmol/L (98-107); Potassium 3.3 mmol/L (3.5-5.1); Sodium 141 mmol/L (136-145)
[2024-01-24 06:02] LABS: Anion Gap 9 (5-15); Carbon Dioxide 28 mmol/L (20-30)
[2024-01-24 06:03] LABS: Calcium 7.8 mg/dL (8.7-10.4)
[2024-01-24 06:07] LABS: BUN/Creatinine Ratio 12.3 (10.0-20.0); Blood Urea Nitrogen 8 mg/dL (9-23); Glucose 102 mg/dL (74-106)
[2024-01-24 06:08] LABS: Magnesium 1.7 mg/dL (1.6-2.6)
[2024-01-24] MEDS: POTASSIUM EFFERVESENT TAB 25 MEQ PO ONE (16:11)
[2024-01-25] VITALS (17 sets, daily range): BP systolic 95–130; BP diastolic 47–67; PULSE 73–103; RESP 0–19; TEMP 37; O2SAT 0–100
[2024-01-25 10:29] LABS: Basophils # (auto) 0.1 10 ^3/uL (0-0.2); Eosinophils # (auto) 0.2 10 ^3/uL (0-0.8); Hemoglobin 10.5 g/dL (12.2-16.2); Neutrophils # (auto) 6.8 10 ^3/uL (1.6-8.6); Nucleated Red Blood Cells % 0.1 %; White Blood Cell 9.5 10^3/uL (4.4-10.8)
[2024-01-25 10:33] LABS: Basophils % (auto) 0.6 % (0.0-2.0); Eosinophils % (auto) 1.8 % (0.0-7.0); Hematocrit 31.2 % (36.0-46.0); Mean Corpuscular Hemoglobin 35.9 pg (28.0-32.0); Mean Corpuscular Hgb Conc. 33.7 g/dL (32.0-36.0); Mean Corpuscular Volume 106.6 fL (80.0-100.0); Monocytes # (auto) 0.6 10 ^3/uL (0-1.3); Monocytes % (auto) 5.8 % (0.0-12.0); Neutrophils % (auto) 70.8 % (37.0-80.0); Red Blood Cells 2.93 10^6/uL (4.0-5.20); Red Cell Distribution Width 23.9 % (11.8-14.3)
[2024-01-25 10:45] LABS: Alanine Aminotransferase 41 U/L (7-40); Alkaline Phosphatase 61 U/L (46-116); Anion Gap 7 (5-15); Aspartate Aminotransferase 17 U/L (13-40); BUN/Creatinine Ratio 7.1 (10.0-20.0); Bilirubin, Total 0.5 mg/dL (0.2-1.0); Blood Urea Nitrogen 5 mg/dL (9-23); Calcium 7.9 mg/dL (8.7-10.4); Carbon Dioxide 30 mmol/L (20-30); Chloride 101 mmol/L (98-107); Glucose 169 mg/dL (74-106); Magnesium 1.6 mg/dL (1.6-2.6); Phosphorus 3.7 mg/dL (2.4-5.1); Potassium 2.9 mmol/L (3.5-5.1); Sodium 138 mmol/L (136-145); Total Protein 5.3 g/dL (5.7-8.2)
[2024-01-25] MEDS: POTASSIUM EFFERVESENT TAB 25 MEQ PO ONE (11:31)
[2024-01-25] MEDS ORDERED: FUR20T PO (13:12)
[2024-01-25] MEDS ORDERED: POTA1TAB61 PO (13:12)
[2024-01-25] MEDS ORDERED: ALBUAER3 IN (13:12)
[2024-01-25] MEDS ORDERED: MET25T PO (13:12)
[2024-01-25] MEDS ORDERED: ATOR20TA50 PO (13:12)
[2024-01-25] MEDS ORDERED: SACU1TAB PO (13:12)
[2024-01-25] MEDS ORDERED: EMPA1TAB PO (13:12)
[2024-01-25] MEDS ORDERED: MAGN400T40 PO (13:13)
[2024-01-25] MEDS ORDERED: DOXY-448 PO (13:15)
[2024-01-26] VITALS (9 sets, daily range): BP systolic 102–133; BP diastolic 53–58; PULSE 85–102; RESP 16–20; TEMP 98; O2SAT 92–99
== END 2024-01-26 18:27 | disposition home health service (06) | DRG 870 ==
LOC: EDBD 05:11 → ER 05:11 → TELE 09:57 → ICU WEST 01-14 08:02 → TELE-WESTW 01-21 02:10
PROVIDERS: ADMIT Nurse Practitioner Acute Care; ATTEND Nurse Practitioner Acute Care
PROC: 5A1955Z Respiratory Ventilation, Greater than 96 Consecutive Hours (ICD-10-PCS; principal; 2024-01-12)
PROC: 0BH17EZ Insertion of Endotracheal Airway into Trachea, Via Natural or Artificial Opening (ICD-10-PCS; 2024-01-12)
PROC: 5A09357 Assistance with Respiratory Ventilation, Less than 24 Consecutive Hours, Continuous Positive Airway Pressure (ICD-10-PCS; 2024-01-12)
PROC: 02HV33Z Insertion of Infusion Device into Superior Vena Cava, Percutaneous Approach (ICD-10-PCS; 2024-01-12)
PROC: B548ZZA Ultrasonography of Superior Vena Cava, Guidance (ICD-10-PCS; 2024-01-12)
PROC: 5A12012 Performance of Cardiac Output, Single, Manual (ICD-10-PCS; 2024-01-13)
PROC: 0B9D8ZX Drainage of Right Middle Lung Lobe, Via Natural or Artificial Opening Endoscopic, Diagnostic (ICD-10-PCS; 2024-01-16)
PROC: 5A09357 Assistance with Respiratory Ventilation, Less than 24 Consecutive Hours, Continuous Positive Airway Pressure (ICD-10-PCS; 2024-01-18)
PROC: 0BP1XDZ Removal of Intraluminal Device from Trachea, External Approach (ICD-10-PCS; 2024-01-18)
PROC: 05H933Z Insertion of Infusion Device into Right Brachial Vein, Percutaneous Approach (ICD-10-PCS; 2024-01-19)
PROC: B54MZZA Ultrasonography of Right Upper Extremity Veins, Guidance (ICD-10-PCS; 2024-01-19)
PROC: 5A09357 Assistance with Respiratory Ventilation, Less than 24 Consecutive Hours, Continuous Positive Airway Pressure (ICD-10-PCS; 2024-01-19)
DX: A41.9 Sepsis, unspecified organism (principal); I21.A1 Myocardial infarction type 2; J96.01 Acute respiratory failure with hypoxia; N17.0 Acute kidney failure with tubular necrosis; R65.21 Severe sepsis with septic shock; I50.23 Acute on chronic systolic (congestive) heart failure; I46.9 Cardiac arrest, cause unspecified; J15.212 Pneumonia due to Methicillin resistant Staphylococcus aureus; I47.19 Other supraventricular tachycardia; J44.1 Chronic obstructive pulmonary disease with (acute) exacerbation; E87.1 Hypo-osmolality and hyponatremia; E87.20 Acidosis, unspecified; J44.0 Chronic obstructive pulmonary disease with (acute) lower respiratory infection; E87.3 Alkalosis; Z99.11 Dependence on respirator [ventilator] status; E83.42 Hypomagnesemia; E87.6 Hypokalemia; R91.1 Solitary pulmonary nodule; I27.20 Pulmonary hypertension, unspecified; E27.8 Other specified disorders of adrenal gland; D35.00 Benign neoplasm of unspecified adrenal gland; E66.9 Obesity, unspecified; E86.1 Hypovolemia; I48.91 Unspecified atrial fibrillation; K43.9 Ventral hernia without obstruction or gangrene; B96.20 Unspecified Escherichia coli [E. coli] as the cause of diseases classified elsewhere; D35.02 Benign neoplasm of left adrenal gland; K57.90 Diverticulosis of intestine, part unspecified, without perforation or abscess without bleeding; N30.90 Cystitis, unspecified without hematuria; K76.0 Fatty (change of) liver, not elsewhere classified; E83.39 Other disorders of phosphorus metabolism; Z20.822 Contact with and (suspected) exposure to COVID-19; D64.9 Anemia, unspecified; I80.9 Phlebitis and thrombophlebitis of unspecified site; E86.0 Dehydration; I11.0 Hypertensive heart disease with heart failure; K57.30 Diverticulosis of large intestine without perforation or abscess without bleeding; Z85.038 Personal history of other malignant neoplasm of large intestine; Z91.199 Patient's noncompliance with other medical treatment and regimen due to unspecified reason; Z91.148 Patient's other noncompliance with medication regimen for other reason; Z93.3 Colostomy status; Z90.49 Acquired absence of other specified parts of digestive tract; Z68.31 Body mass index [BMI] 31.0-31.9, adult
CPT/HCPCS: 31624; 36415; 36569; 36600; 71045; 71275; 74018; 74176; 76604; 80048; 80053; 80202; 80320; 81001; 82088; 82270; 82310; 82378; 82565; 82805; 82962; 83036; 83605; 83735; 83880; 84100; 84132; 84133; 84244; 84443; 84484; 85007; 85025; 85027; 85379; 85610; 85730; 87040; 87070; 87077; 87081; 87086; 87088; 87186; 87205; 87426; 87493; 87804; 92950; 93005; 93306; 93971; 94002; 94003; 94640; 94660; 96365; 96367; 96372; 96375; 97110; 97116; 97163; 97530; 99291; C9113; G0378; J0153; J0692; J1100; J1815; J2001; J2250; J2405; J3480; J3490; J7042; J7060